=== PATIENT | female | born 1995 | race Caucasian/White ===

== ENCOUNTER 2021-03-18 04:04 | Inpatient (IN) ==
[~2021-03-18 04:04] MED LIST: Famotidine 20 MG/2 ML VIAL IVP PRN; Metoclopramide 10 MG/2 ML VIAL IVP PRN; Naloxone 0.4 MG/ML INJ IVP PRN; Ringers Solution, Lactated 1,000 ML IVC SCH
[2021-03-18 04:06] LABS: Basophils % 0.4 %; Eosinophils # 0.1 K/mcL (0.0-0.6); Eosinophils % 1.4 %; Hemoglobin 13.5 g/dL (11.5-15.4); Immature Granulocytes % 0.4 % (0-4); Lymphocytes % 20.8 %; Mean Corpuscular HGB Conc 33.8 g/dL (31.6-35.5); Mean Corpuscular Hemoglobin 29.7 pg (28.0-33.3); Mean Corpuscular Volume 87.9 fL (83.0-100.0); Mean Platelet Volume 11.6 fL (9.4-12.4); Monocytes # 0.8 K/mcL (0.0-1.3); Monocytes % 7.9 %; Neutrophils # 6.7 K/mcL (1.6-8.9); Platelet Count 190 K/mcL (140-400); Red Blood Count 4.55 M/mcL (3.82-4.97); Red Cell Distribution Width 13.7 % (11.5-14.5); Segmented Neutrophils % 69.1 %; White Blood Count 9.7 K/mcL (4.3-11.1)
[2021-03-18 04:36] LABS: Influenza A PCR Negative (Negative); Influenza B PCR Negative (Negative); Resp. Syncytial Virus PCR Negative (Negative)
[2021-03-18 04:37] LABS: SARS-CoV-2 by PCR (In House) Negative (Negative)
[2021-03-18 04:53] LABS: Amphetamine Screen,Urine Negative ng/mL (Cutoff=1000); Barbiturate Screen,Urine Negative ng/mL (Cutoff=200); Benzodiazepines Screen,Urine Negative ng/mL (Cutoff=200); Cannabinoid Screen,Urine Negative ng/mL (Cutoff = 50); Cocaine Screen,Urine Negative ng/mL (Cutoff= 300); Opiate Screen,Urine Negative ng/mL (Cutoff=300); Phencyclidine Screen,Urine Negative ng/mL (Cutoff=25)
[2021-03-18] MEDS ORDERED: *HR* Morphine Sulfate/PF 10 MG/10 ML AMPUL ONE (05:08)
[2021-03-18] MEDS ORDERED: EPHEDrine 50 MG/ML VIAL ONE (05:08)
[2021-03-18] MEDS ORDERED: *HR* FentaNYL (PF) 100 MCG/2 ML VIAL ONE (05:09)
[2021-03-18] MEDS ORDERED: Ondansetron 4 MG/2 ML VIAL ONE (05:09)
[2021-03-18] MEDS ORDERED: Ketorolac 30 MG/ML VIAL ONE (05:09)
[2021-03-18] MEDS ORDERED: Acetaminophen IV 1,000 MG/100 ML BAG IVPB ONE (05:10)
[2021-03-18] MEDS ORDERED: Oxytocin 20 units/ LR 1000 mL 20 UNIT/1,000 ML BAG IVC ONE (05:16)
[2021-03-18] MEDS ORDERED: *HR* HYDROmorphone PF 0.5 MG/0.5 ML SYRINGE IVP PRN (06:34)
[2021-03-18] MEDS ORDERED: Ondansetron 4 MG/2 ML VIAL IVP PRN ×2 (06:34→09:30)
[2021-03-18] MEDS ORDERED: Metoclopramide 10 MG/2 ML VIAL IVP PRN (09:30)
[2021-03-18] MEDS ORDERED: Oxytocin 20 units/ LR 1000 mL 20 UNIT/1,000 ML BAG IVC SCH (09:30)
[2021-03-18] MEDS ORDERED: Ringers Solution, Lactated 1,000 ML IVC SCH (09:30)
[2021-03-18] MEDS ORDERED: Prenatal Vit/FA 1 EACH TABLET PO SCH (09:30)
[2021-03-18] MEDS ORDERED: Rho Immune Globulin 1,500 UNIT SYRINGE IM ONE ×2 (09:30→21:00)
[2021-03-18] MEDS ORDERED: *HR* OxyCODONE Immed Rel 5 MG TABLET PO PRN (09:30)
[2021-03-18] MEDS: Simethicone 80 MG TAB.CHEW PO PRN (20:47)
[2021-03-18] MEDS: Ibuprofen 600 MG TABLET PO SCH (20:47)
[2021-03-18] MEDS: Acetaminophen 325 MG TABLET PO SCH (20:48)
[2021-03-19 02:41] LABS: Basophils % 0.2 %; Eosinophils # 0.1 K/mcL (0.0-0.6); Eosinophils % 0.5 %; Hematocrit 33.9 % (35.3-44.9); Immature Granulocytes % 0.3 % (0-4); Lymphocytes # 2.8 K/mcL (0.6-4.6); Lymphocytes % 17.9 %; Mean Corpuscular HGB Conc 33.9 g/dL (31.6-35.5); Mean Corpuscular Hemoglobin 30.3 pg (28.0-33.3); Mean Corpuscular Volume 89.4 fL (83.0-100.0); Mean Platelet Volume 12.1 fL (9.4-12.4); Monocytes # 1.3 K/mcL (0.0-1.3); Monocytes % 8.3 %; Neutrophils # 11.5 K/mcL (1.6-8.9); Platelet Count 177 K/mcL (140-400); Red Blood Count 3.79 M/mcL (3.82-4.97); Red Cell Distribution Width 13.9 % (11.5-14.5); Segmented Neutrophils % 72.8 %
[2021-03-19 02:49] LABS: Hemoglobin 11.5 g/dL (11.5-15.4); White Blood Count 15.8 K/mcL (4.3-11.1)
[2021-03-19] MEDS: Ibuprofen 600 MG TABLET PO SCH ×3 (03:45→16:28)
[2021-03-19] MEDS: Acetaminophen 325 MG TABLET PO SCH ×3 (03:45→16:27)
[2021-03-19 07:14] VITALS: BP 95/50; PULSE 71; TEMP 97.4; O2SAT 98
[2021-03-19] MEDS: Simethicone 80 MG TAB.CHEW PO PRN (08:21)
== END 2021-03-19 16:31 | disposition home or self-care (01) | DRG 788 ==
LOC: 1NENULAB → 1NENUOBS 09:29
PROVIDERS: ADMIT Obstetrics & Gynecology; ATTEND Obstetrics & Gynecology